=== PATIENT | female | born 1960 | race Caucasian/White ===

== ENCOUNTER 2021-12-26 15:42 | Inpatient (IN) ==
[2021-12-26] MEDS ORDERED: IOPAMIDOL 100 ML BOTTLE IV ONE (15:43)
--- NOTE | 2021-12-26 15:53 | Emergency Department Note ---
HPI General Chief complaint: Cold/Flu Symptoms Stated complaint: Low sats, cough Time Seen by Provider: 12/26/21 15:53 Source: patient Mode of arrival: ambulatory Limitations: no limitations History of Present Illness HPI Narrative: 60-year-old female with past medical history of hypertension presenting with shortness of breath and cough. She states since yesterday she has been short of breath, worse with exertion, and had a cough productive of clear sputum. She went to [facility] and was noted to be satting to 88% on room air so sent to the ED. Patient denies fever, chest pain, vomiting, or leg swelling. She is a prior smoker for about 20 years but quit smoking 2-1/2 years ago. She denies any history of asthma or COPD. Does not wear oxygen at home. Denies any sick contacts. She has received the COVID-vaccine, booster, and the flu vaccine. No other complaints. Related Data Home Medications Medication Instructions Recorded Confirmed losartan 50 mg tablet 50 mg PO DAILY 05/06/20 05/06/20 Previous Rx's Medication Instructions Recorded tramadol 50 mg tablet 50 mg PO Q6H PRN #14 tab 05/06/20 Allergies Allergy/AdvReac Type Severity Reaction Status Date / Time Erythromycin Base Allergy Verified 12/26/21 15:42 Review of Systems ROS ROS Narrative: Narrative: Constitutional: Denies fever or chills ENT ED: Denies throat pain Cardiovascular: Denies chest pain or palpitations Respiratory: Reports shortness of breath and cough Gastrointestinal: Denies abdominal pain, nausea or vomiting Genitourinary: Denies dysuria or hematuria Musculoskeletal: Denies back pain or joint swelling Integumentary: Denies rash Neurological: Denies headache or weakness Psychiatric: Denies anxiety Endocrine: Denies fatigue Hematological/Lymphatic: Denies easy bruising [facility] Narrative Patient History Narrative: Narrative: Medical/Surgical/Family History All Active Problems (Updated 12/26/21 @ 17:04 by Yang Baxter MD) Acute ischemic colitis (Acute) Renal artery stenosis (Acute) Dyspnea (Acute) Hypoxia (Acute) Pneumonia (Acute) Medical History (Updated 12/26/21 @ 17:04 by Yang Baxter MD) Hypertension Social History Smoking Status: Current every day smoker Exam Narrative Narrative: Narrative: General Limitations: no limitations General appearance: Present alert and in no apparent distress Head Head: Present atraumatic and normocephalic Eye Eye: Present normal appearance, PERRL and EOMI; Absent scleral icterus or conjunctival injection ENT ENT: Present normal oropharynx and mucous membranes moist Neck Neck: Present normal inspection, full ROM and trachea midline; Absent meningismus Chest Chest: Present symmetric chest wall rise Respiratory Respiratory: Present wheezes (expiratory wheezes bilaterally); Absent respiratory distress, rales/crackles, stridor, accessory muscle use or prolonged expiratory phase Cardiovascular Cardiovascular: Present normal rhythm and tachycardia; Absent systolic murmur or diastolic murmur Adbominal Abdominal: Present soft; Absent distention, tenderness, guarding, rebound, rigidity, organomegaly or mass Extremities Extremities: Present normal inspection; Absent pretibial edema Back Back: Present normal inspection Neurological Neurological: Present alert and oriented X3; Absent motor sensory deficit Psychiatric Psychiatric: Present normal affect and normal mood Skin Skin: Present warm (WNL) and dry Course Vital Signs Vital signs: Vital Signs Temperature 98.4 F 12/26/21 15:42 Pulse Rate 113 H 12/26/21 15:42 Respiratory Rate 20 12/26/21 15:42 Blood Pressure 156/70 12/26/21 15:42 Pulse Oximetry (%) 90 12/26/21 15:42 Temperature 98.4 F 12/26/21 15:42 Pulse Rate 121 H 12/26/21 16:45 Respiratory Rate 26 H 12/26/21 16:45 Blood Pressure 149/61 12/26/21 16:45 Pulse Oximetry (%) 90 12/26/21 16:45 [facility] Narrative Medical decision making narrative: 60-year-old female presenting with dyspnea and cough. She is hypoxic to 88% on room air, now satting 94 to 96% on 3 L via nasal cannula. She is also tachycardic to the 110s. Normal saline bolus ordered. EKG shows sinus tachycardia with no ischemic changes. Rapid COVID and influenza swabs are negative. Given her wheezing on exam, a DuoNeb was ordered. Will obtain labs including D-dimer, blood cultures, and chest x-ray. Concern for pneumonia versus COPD/bronchitis versus PE. 1650: pH and PCO2 on venous blood gas are normal. Lactate is mildly elevated at 2.1, she is receiving a normal saline bolus. Blood cultures sent and 1g IV Rocephin ordered given her mildly elevated lactate and tachycardia. Poin t-of-care troponin is negative. Chest x-ray and remainder of labs are pending. 1655: Chest x-ray shows bilateral interstitial disease, worse on the right, that is concerning for infection. Doxycycline 100mg IV ordered as well. 0: Patient signed out to denise ROGEL, Dr. Landrum. Lab Data Lab results reviewed: Yes I reviewed the patient's lab results. Result diagrams: 12/26/21 16:05 Labs: Lab Results 12/26/21 12/26/21 12/26/21 Range/Units 16:05 16:07 16:19 WBC 14.4 H (4.5-11.0) K/mcL RBC 3.89 (3.59-5.38) M/mcL Hgb 13.9 (11.2-15.7) g/dL Hct 40.7 (34.1-44.9) % POC Hct 44.0 (36-48) MCV 104.6 H (80.0-100.0) fL MCH 35.7 H (26.0-34.0) pg MCHC 34.2 (31.0-36.0) g/dL RDW 13.2 (11.5-14.5) % Plt Count 176 (140-440) K/mcL MPV 11.2 H (7.4-10.4) fL Neut % (Auto) 91.9 H (38.0-78.0) % Lymph % (Auto) 2.6 L (15.5-49.0) % [place] % (Auto) 5.1 (1.0-12.0) % Eos % (Auto) 0 (0.0-7.0) % Baso % (Auto) 0.4 (0.0-2.0) % Lymph # (Auto) 0.37 L (1.50-4.80) K/mcL [place] # (Auto) 0.73 (0.10-0.90) K/mcL Eos # (Auto) 0 (0.00-0.70) K/mcL Baso # (Auto) 0.06 (0.00-0.30) K/mcL Absolute Neutrophils 13.19 H (1.80-8.00) K/mcL POC VBG pH 7.42 (7.32-7.42) POC VBG pCO2 at Temp 39.5 L (41-51) POC VBG pO2 23 L (25-40) POC VBG HCO3 25.7 (24-28) POC VBG Total CO2 27.0 (25-29) POC Venous O2 Sat 43.0 (40-70) POC VBG Base Excess 1.0 (-2-2) POC Sodium 136 (133-145) POC Potassium 3.9 (3.3-5.1) POC Chloride 101 (96-108) POC Total CO2 23.0 (22-30) POC BUN 11 (6-20) POC Creatinine 0.8 (0.6-1.2) POC Glucose 118 H (70-105) POC Venous Lactate 2.1 H (0.5-2) POC WB Ioniz Calcium 1.12 L (1.16-1.32) POC Troponin I (0.02-0.08) 12/26/21 Range/Units 16:21 WBC (4.5-11.0) K/mcL RBC (3.59-5.38) M/mcL Hgb (11.2-15.7) g/dL Hct (34.1-44.9) % POC Hct (36-48) MCV (80.0-100.0) fL MCH (26.0-34.0) pg MCHC (31.0-36.0) g/dL RDW (11.5-14.5) % Plt Count (140-440) K/mcL MPV (7.4-10.4) fL Neut % (Auto) (38.0-78.0) % Lymph % (Auto) (15.5-49.0) % [place] % (Auto) (1.0-12.0) % Eos % (Auto) (0.0-7.0) % Baso % (Auto) (0.0-2.0) % Lymph # (Auto) (1.50-4.80) K/mcL [place] # (Auto) (0.10-0.90) K/mcL Eos # (Auto) (0.00-0.70) K/mcL Baso # (Auto) (0.00-0.30) K/mcL Absolute Neutrophils (1.80-8.00) K/mcL POC VBG pH (7.32-7.42) POC VBG pCO2 at Temp (41-51) POC VBG pO2 (25-40) POC VBG HCO3 (24-28) POC VBG Total CO2 (25-29) POC Venous O2 Sat (40-70) POC VBG Base Excess (-2-2) POC Sodium (133-145) POC Potassium (3.3-5.1) POC Chloride (96-108) POC Total CO2 (22-30) POC BUN (6-20) POC Creatinine (0.6-1.2) POC Glucose (70-105) POC Venous Lactate (0.5-2) POC WB Ioniz Calcium (1.16-1.32) POC Troponin I 0 L (0.02-0.08) ED POC Tests ED POC Tests: NAILA - Influenza A Negative NAILA - Influenza B Negative NAILA - SARS Antigen Negative Radiology Data Radiology results reviewed: Yes I reviewed the patient's radiology results. Radiology results narrative: Ordering Physician:Yang Baxter M.D. Date of Service:12/26/21 Procedure(s):XR chest 1V portable CLINICAL INFORMATION: Hypoxia and cough COMPARISON: None. TECHNIQUE: Portable FINDINGS: The heart size, mediastinum and pulmonary vessels are unremarkable. Moderate interstitial disease is seen in both mid and lower lungs as more severe on the right side. There is a 2.5 cm vague nodular density in the lateral right midlung. Underlying chronic bronchitis noted. There are no effusions.. There are no effusions. IMPRESSION: Moderate interstitial disease in both mid and lower lungs more severe on the right side. Suspect infection. 2.5 cm vague nodular density in the right midlung is likely merely more concentrated infiltrate, but will require two-view repeat chest x-ray in 2-3 weeks for reevaluation to exclude nodule Interpreted and Authenticated by: Jose Lyn 12/26/21 EKG Data EKG #1: EKG attestation: Yes I reviewed and interpreted this EKG. and Yes There are no EKG findings of acute coronary syndrome EKG results narrative: Sinus tachycardia at [address] elevation or depression. Interpretation: no acute changes Discharge Plan Patient/Caregiver Discharge Instructions Pt seen by LEATHER CUTTER/PA only: No Clinical Impression: Dyspnea, Hypoxia, Pneumonia Patient Disposition: Still a Patient Follow up with: Nely Medel [Primary Care Provider] - Prescriptions: No Action losartan 50 mg Tablet 50 mg PO DAILY 0RF tramadol 50 mg Tablet 50 mg PO Q6H PRN (Reason: Pain) Qty: 14 0RF
[2021-12-26] MEDS ORDERED: IPRATROPIUM/ALBUTEROL 3 ML AMPUL.NEB NEB ONE (16:04)
[2021-12-26] MEDS ORDERED: 0.9 % SODIUM CHLORIDE 1,000 ML IV ONE ×2 (16:06→21:49)
[2021-12-26 16:21] LABS: POC Calcium, Ionized 1.12 (1.16-1.32); POC Creatinine 0.8 (0.6-1.2); POC Potassium 3.9 (3.3-5.1)
[2021-12-26] MEDS ORDERED: cefTRIAXone 1 GM VIAL IV ONE (16:42)
--- NOTE | 2021-12-26 16:50 | XRay Report ---
CLINICAL INFORMATION: Hypoxia and cough COMPARISON: None. TECHNIQUE: Portable FINDINGS: The heart size, mediastinum and pulmonary vessels are unremarkable. Moderate interstitial disease is seen in both mid and lower lungs as more severe on the right side. There is a 2.5 cm vague nodular density in the lateral right midlung. Underlying chronic bronchitis noted. There are no effusions.. There are no effusions. IMPRESSION: Moderate interstitial disease in both mid and lower lungs more severe on the right side. Suspect infection. 2.5 cm vague nodular density in the right midlung is likely merely more concentrated infiltrate, but will require two-view repeat chest x-ray in 2-3 weeks for reevaluation to exclude nodule Interpreted and Authenticated by: Jose Lyn 12/26/21
[2021-12-26 16:58] LABS: Basophils # (Auto) 0.06 K/mcL (0.00-0.30); Basophils % (Auto) 0.4 % (0.0-2.0); Eosinophils # (Auto) 0 K/mcL (0.00-0.70); Eosinophils % (Auto) 0 % (0.0-7.0); Hematocrit 40.7 % (34.1-44.9); Hemoglobin 13.9 g/dL (11.2-15.7); Lymphocytes # (Auto) 0.37 K/mcL (1.50-4.80); Lymphocytes % (Auto) 2.6 % (15.5-49.0); Mean Cell Volume 104.6 fL (80.0-100.0); Mean Corpuscular HGB Conc 34.2 g/dL (31.0-36.0); Mean Platelet Volume 11.2 fL (7.4-10.4); Monocytes # (Auto) 0.73 K/mcL (0.10-0.90); Monocytes % (Auto) 5.1 % (1.0-12.0); Neutrophils % (Auto) 91.9 % (38.0-78.0); Platelet Count 176 K/mcL (140-440); RBC 3.89 M/mcL (3.59-5.38); Red Cell Distribution Width 13.2 % (11.5-14.5); WBC 14.4 K/mcL (4.5-11.0)
[2021-12-26] MEDS ORDERED: DOXYCYCLINE 100 MG in DEXTROSE 5% IN WATER 100 ML IV ONE (16:58)
[2021-12-26 17:14] LABS: proBNP 377.5 pg/mL (<125.0)
--- NOTE | 2021-12-26 18:09 | Cat Scan Report ---
CLINICAL INFORMATION: Hypoxia and elevated d-dimer COMPARISON: None. TECHNIQUE: 80ml of Isovue-370 were injected intravenously. Using SmartPrep to maximize pulmonary artery opacification, .625mm helical slices were obtained from the lung apices through the lung bases. Following reconstruction, 2.5 mm sagittal, coronal, and axial reformations were processed. The exam was reviewed at mediastinal, lung, and bone windows. The exam was performed using radiation dose optimization techniques including, but not limited to, automated exposure control, adjustment of the mA and/or kV according to patient size and use of iterative reconstruction technique. FINDINGS: Pulmonary parenchymal windows show moderate centrilobular and paraseptal emphysema featuring chronic bronchitis with elevated lung volumes wall thickening/dilatation of bronchi. Multiple bullae are, predominantly, in the upper lobes with a few scattered in the paramediastinal lower lobe and right middle lobe. Moderate groundglass infiltrates are seen within both upper, right middle and lower lobes. In the posterior segment of the right upper lobe, a smaller more densely consolidated infiltrate is appreciated. This would account for the density seen on plain x-ray. 2 mm nodule seen in the lateral right upper lobe on image 38. This is benign size range and could represent a granuloma. Pleural spaces are unremarkable-no effusions. Mediastinal windows show the heart is grossly normal in size and configuration. The pulmonary arteries are normal diameter and well-opacified without evidence of embolus. Thoracic aorta is also normal diameter and well-opacified. There is no adenopathy in the mediastinal, hilar or axillary regions. Esophagus is grossly normal. The thyroid is unremarkable. Bones and soft tissues the chest wall are normal. Images through the superior abdomen are unremarkable. IMPRESSION: 1. No evidence of pulmonary embolus. 2. Moderate centrilobular and paraseptal emphysema 3. Moderate groundglass infiltrates throughout both upper, right middle and lower lobes. A smaller region of densely consolidated infiltrate seen in the posterior segment of the right upper lobe. This would account for the focal density seen on plain x-ray. No evidence of pulmonary malignancy. In the acute situation, the groundglass infiltrates may represent atypical pneumonia such as PCP, mycoplasma or covid and other viral pneumonias. ARDS would be less likely. Uncommon causes would include acute eosinophilic pneumonia and acute hypersensitivity pneumonitis. Interpreted and Authenticated by: Jose Lyn 12/26/21
--- NOTE | 2021-12-26 19:20 | Internal Med History&Physical ---
HPI History of Present Illness Patient information: Note initiated : 12/26/21 at 7:19 pm Service Date, if different from initiated Date: [] Patient: Renate Dykes a 60 y/o F admitted on for Low sats, cough. Chief Complaint: [] History of present illness: Ms. Dykes is a 60 year old Presents today with shortness of breath and coughing. Patient states yesterday she started developing a cough and some mild shortness of breath which progressed through the night and today where she was so severe she could hardly walk across the room as she became so short of breath. She had productive cough of clear and sometimes thick sputum. Also had a few loose stools. No chest pain no headache or fever but has chills. She has had the COVID-vaccine and the booster. Rapid [place] COVID and flu screens were negative. The [place] COVID test is been sent Patient has a history of heavy smoking 3 years ago. An elevated D-dimer and CT was done which showed no PE but did show moderate emphysema changes and bilateral infiltrates. Patient's never been evaluated for COPD she did receive an inhaler 1 time for upper respite tract infection she felt she responded well to it. She is hypoxic down to 83% in the ED. Review of Systems: Pertinent positives as above. Denies headache/fever/nausea/vomiting/chest or abdominal pain. Remaining 10 point review of system reviewed negative PFSH PFSH All Active Problems (Updated 12/26/21 @ 17:04 by Yang Baxter MD) Acute ischemic colitis (Acute) Renal artery stenosis (Acute) Dyspnea (Acute) Hypoxia (Acute) Pneumonia (Acute) Medical History (Updated 12/26/21 @ 17:04 by Yang Baxter MD) Hypertension MEDS/ALLERGIES Home Medications and Allergies Home Medications Medication Instructions Recorded Confirmed Type losartan 50 mg tablet 50 mg PO DAILY 05/06/20 12/26/21 History alendronate 70 mg tablet 1 tab PO WEEKLY 12/26/21 12/26/21 History aspirin 81 mg tablet 81 mg PO QDAY 12/26/21 12/26/21 History clopidogrel 75 mg tablet 1 tab PO QAM 12/26/21 12/26/21 History fenofibrate nanocrystallized 145 1 tab PO QDAY 12/26/21 12/26/21 History mg tablet folic acid 400 mcg tablet 0.4 mg PO QDAY 12/26/21 12/26/21 History Allergies Allergy/AdvReac Type Severity Reaction Status Date / Time Erythromycin Base Allergy Verified 12/26/21 15:42 EXAM Constitutional Vitals: Temp Pulse Resp BP Pulse Ox 98.4 F 103 H 25 H 125/68 94 12/26/21 15:42 12/26/21 18:46 12/26/21 18:46 12/26/21 18:46 12/26/21 18:46 Exam: General: Alert, Awake, cachectic Eyes/N/T: EOMI, PERRL, MM Head/Neck: neck supple, normocephalic atraumatic CV: Tacky but regular, No murmurs, normal s1/s2 Pulm: Subtle rhonchi b/l, no wheezing, prolonged exp phase Abd: soft, nontender, +BS x4 Ext: no clubbing/cyanosis/edema Neuro: Alert, no focal deficits, moves all extremities, CN 2-12 grossly intact, symmetrical strength b/l upper/lower, sensations intact b/l upper/lower Skin: warm/dry DATA Data Completed and Pending Labs: Labs from last 24 hours 12/26/21 12/26/21 12/26/21 19:04 16:21 16:19 WBC RBC Hgb Hct POC Hct 44.0 MCV MCH MCHC RDW Plt Count MPV Neut % (Auto) Lymph % (Auto) [place] % (Auto) Eos % (Auto) Baso % (Auto) Lymph # (Auto) [place] # (Auto) Eos # (Auto) Baso # (Auto) Absolute Neutrophils D-Dimer POC VBG pH POC VBG pCO2 at Temp POC VBG pO2 POC VBG HCO3 POC VBG Total CO2 POC Venous O2 Sat POC VBG Base Excess VBG Lactic Acid Pending POC Sodium 136 POC Potassium 3.9 POC Chloride 101 POC Total CO2 23.0 POC BUN 11 POC Creatinine 0.8 POC Glucose 118 H POC Venous Lactate POC WB Ioniz Calcium 1.12 L NT-Pro-B Natriuret Pep Procalcitonin POC Troponin I 0 L 12/26/21 12/26/21 12/26/21 16:07 16:05 16:05 WBC RBC Hgb Hct POC Hct MCV MCH MCHC RDW Plt Count MPV Neut % (Auto) Lymph % (Auto) [place] % (Auto) Eos % (Auto) Baso % (Auto) Lymph # (Auto) [place] # (Auto) Eos # (Auto) Baso # (Auto) Absolute Neutrophils D-Dimer POC VBG pH 7.42 POC VBG pCO2 at Temp 39.5 L POC VBG pO2 23 L POC VBG HCO3 25.7 POC VBG Total CO2 27.0 POC Venous O2 Sat 43.0 POC VBG Base Excess 1.0 VBG Lactic Acid POC Sodium POC Potassium POC Chloride POC Total CO2 POC BUN POC Creatinine POC Glucose POC Venous Lactate 2.1 H POC WB Ioniz Calcium NT-Pro-B Natriuret Pep 377.5 H Procalcitonin 1.29 H POC Troponin I 12/26/21 12/26/21 16:05 16:05 WBC 14.4 H RBC 3.89 Hgb 13.9 Hct 40.7 POC Hct MCV 104.6 H MCH 35.7 H MCHC 34.2 RDW 13.2 Plt Count 176 MPV 11.2 H Neut % (Auto) 91.9 H Lymph % (Auto) 2.6 L [place] % (Auto) 5.1 Eos % (Auto) 0 Baso % (Auto) 0.4 Lymph # (Auto) 0.37 L [place] # (Auto) 0.73 Eos # (Auto) 0 Baso # (Auto) 0.06 Absolute Neutrophils 13.19 H D-Dimer 2.22 H POC VBG pH POC VBG pCO2 at Temp POC VBG pO2 POC VBG HCO3 POC VBG Total CO2 POC Venous O2 Sat POC VBG Base Excess VBG Lactic Acid POC Sodium POC Potassium POC Chloride POC Total CO2 POC BUN POC Creatinine POC Glucose POC Venous Lactate POC WB Ioniz Calcium NT-Pro-B Natriuret Pep Procalcitonin POC Troponin I A/P Narrative A/P Narrative: A: *Pneumonia, CAP b/l: -elevated PCT *Acute hypoxic respiratory failure: *SIRS: *Protein calorie malnutrition: Fat and muscle loss *COPD: By imaging and smoking history *HTN: on ARB *CKD III: *PAD: Stent to the right groin by Dr. Fournier few years ago, on ASA/plavix/fibrate *Macrocytosis: * P: -Rocephin/Azithro, f/u pct, SC/BC -Covid/myco/strep pending -O2 supp, wean as able -IS/Acapella, RT, prn nebs - -b12/folate pending -prealbumin, dietary -cont ASA/plavix -cont ARB -pt/ot -Follow-up with pulmonary for PFTs -ppx: Lovenox Time Spent With Patient Time: Total time spent is greater than 50% in coordination of care (as documented) at patient's floor/unit and/or counseling patient: Total time spent with greater than 50% in coordination of care (as documented) at patient's floor/unit and/or counseling patient:: 50 - 70 minutes
[2021-12-26] MEDS ORDERED: MAGNESIUM SULFATE 2 GM/50 ML BAG IV PRN (21:49)
[2021-12-26] MEDS ORDERED: ONDANSETRON 4 MG/2 ML VIAL IV PRN (21:49)
[2021-12-26] MEDS ORDERED: POTASSIUM CHLORIDE 40 MEQ in DEXTROSE 5% IN WATER 500 ML IV PRN (21:49)
[2021-12-26] MEDS ORDERED: POTASSIUM CHLORIDE 20 MEQ TABLET PO PRN ×2 (21:49)
[2021-12-26] MEDS ORDERED: IPRATROPIUM/ALBUTEROL 3 ML AMPUL.NEB NEB PRN (21:49)
[2021-12-26] MEDS ORDERED: POLYETHYLENE GLYCOL 3350 17 GM PACKET PO PRN (21:49)
[2021-12-26] MEDS ORDERED: SENNOSIDES 1 TABLET PO PRN (21:49)
[2021-12-26] MEDS: 0.9 % SODIUM CHLORIDE 10 ML SYRINGE IV SCH (22:23)
[2021-12-26] MEDS: AZITHROMYCIN 500 MG in DEXTROSE 5% IN WATER 250 ML IV SCH (22:26)
[2021-12-26] MEDS: IPRATROPIUM/ALBUTEROL 3 ML AMPUL.NEB NEB SCH (22:29)
[2021-12-27] MEDS: ACETAMINOPHEN 325 MG TABLET PO PRN ×3 (00:16→22:18)
[2021-12-27 02:31] LABS: Prealbumin 18.9 mg/dL (20.0-40.0)
[2021-12-27] MEDS: 0.9 % SODIUM CHLORIDE 10 ML SYRINGE IV SCH ×3 (06:54→21:13)
[2021-12-27 06:58] LABS: ALT/SGPT 6 U/L (<40); AST/SGOT 29 U/L (<32); Albumin 3.2 gm/dL (3.2-5.2); Albumin/Globulin Ratio 1.3 (1.0-2.3); Alkaline Phosphatase 42 U/L (39-117); Bilirubin,Direct < 0.2 mg/dL (0-0.3); Bilirubin,Total 0.4 mg/dL (0.1-1.0); Blood Urea Nitrogen 8 mg/dL (8-23); Calcium 8.3 mg/dL (8.6-10.4); Carbon Dioxide 22 mmol/L (22-30); Chloride 106 mmol/L (96-108); Globulin 2.5 gm/dL (2.2-3.7); Glomerular Filtration Rate 78; Glucose 105 mg/dL (70-105); Lactate Dehydrogenase 321 U/L (135-225); Phosphorous 2.5 mg/dL (2.5-4.5); Triglycerides 82 mg/dL (<150)
[2021-12-27 07:02] LABS: Basophils # (Auto) 0.05 K/mcL (0.00-0.30); Basophils % (Auto) 0.4 % (0.0-2.0); Eosinophils # (Auto) 0.03 K/mcL (0.00-0.70); Eosinophils % (Auto) 0.2 % (0.0-7.0); Hematocrit 34.3 % (34.1-44.9); Hemoglobin 11.3 g/dL (11.2-15.7); Lymphocytes # (Auto) 1.16 K/mcL (1.50-4.80); Lymphocytes % (Auto) 8.3 % (15.5-49.0); Mean Cell Volume 106.2 fL (80.0-100.0); Mean Corpuscular HGB Conc 32.9 g/dL (31.0-36.0); Mean Platelet Volume 11.2 fL (7.4-10.4); Monocytes # (Auto) 0.45 K/mcL (0.10-0.90); Monocytes % (Auto) 3.2 % (1.0-12.0); Neutrophils % (Auto) 87.9 % (38.0-78.0); Platelet Count 136 K/mcL (140-440); RBC 3.23 M/mcL (3.59-5.38); Red Cell Distribution Width 13.2 % (11.5-14.5); WBC 13.9 K/mcL (4.5-11.0)
--- NOTE | 2021-12-27 08:08 | Internal Med Progress Note ---
SUBJECTIVE Subjective Patient information: Note initiated : 12/27/21 at 8:00 am Service Date, if different from initiated Date: [] Patient: Renate Dykes 60 y/o F admitted on 12/26/21 for Low sats, cough. Chief Complaint: [] Interval history: History of present illness: Ms. Dykes is a 60 year old Presents today with shortness of breath and coughing. Patient states yesterday she started developing a cough and some mild shortness of breath which progressed through the night and today where she was so severe she could hardly walk across the room as she became so short of breath. She had productive cough of clear and sometimes thick sputum. Also had a few loose stools. No chest pain no headache or fever but has chills. She has had the COVID-vaccine and the booster. Rapid [facility]odee COVID and flu screens were negative. The [place] COVID test is been sent Patient has a history of heavy smoking 3 years ago. An elevated D-dimer and CT was done which showed no PE but did show moderate emphysema changes and bilateral infiltrates. Patient's never been evaluated for COPD she did receive an inhaler 1 time for upper respite tract infection she felt she responded well to it. She is hypoxic down to 83% in the ED. 5/4 Continues with cough and shortness of breath with some mild improvement. Tired. Sore chest wall from coughing. Leukocytosis. Lactic acidosis resolved. Mycoplasma IgM positive sending a confirmatory test. Review of Systems: denies headache/fever/chills/nausea/vomiting/chest or abdominal pain/diarrhea. Otherwise see above. Constitutional Vitals: Vital Signs Temp Pulse Resp BP Pulse Ox 98.4 F 102 H 20 130/62 95 12/27/21 00:00 12/26/21 22:10 12/27/21 00:00 12/27/21 00:00 12/27/21 00:00 Period Temp Pulse Resp BP Sys/Wick Pulse Ox Last 24 Hr 98.4 F-98.4 F 94-125 16-32 108-156/54-113 83-98 Intake and Output 12/26/21 12/27/21 12/27/21 21:59 05:59 13:59 Intake Total 1100 400 Output Total 200 Balance 1100 200 Weight 45.994 kg 45.994 kg Intake & Output: Intake & Output 12/26/21 12/27/21 12/27/21 21:59 05:59 13:59 Intake Total 1100 400 Output Total 200 Balance 1100 200 Weight 45.994 kg 45.994 kg Intake: IV 1100 Sodium Chloride 0.9% 1,000 ml @ 1000 Wide Open IV BOLUS ONE Rx#: [id number] Vibramycin 100 mg In Dextrose 5 100 % in Water 100 ml @ 100 mls/hr IV ONCE ONE Rx#:[id number] Oral 400 Output: Void Amount 200 Other: Urine Appearance Clear Urine Color Pale # Voids 1 # Bowel Movements 0 Exam: General: Alert, Awake, cachectic Eyes/N/T: EOMI, Head/Neck: neck supple, CV: RRR, No murmurs, Pulm: mil rhonchi b/l, no wheezing, prolonged exp phase Abd: soft, nontender, +BS x4 Ext: no clubbing/cyanosis/edema Neuro: Alert, no focal deficits, moves all extremities, Skin: warm/dry OBJ DATA Labs CBC & Chem 7: 12/27/21 05:53 12/27/21 05:53 Labs: Abnormal Lab Results 12/27/21 12/27/21 12/27/21 05:53 05:53 05:53 WBC 13.9 H RBC 3.23 L MCV 106.2 H MCH 35.0 H Plt Count 136 L MPV 11.2 H Neut % (Auto) 87.9 H Lymph % (Auto) 8.3 L Lymph # (Auto) 1.16 L Absolute Neutrophils 12.25 H D-Dimer POC VBG pCO2 at Temp POC VBG pO2 VBG Lactic Acid POC Glucose POC Venous Lactate Calcium 8.3 L POC WB Ioniz Calcium Lactate Dehydrogenase 321 H NT-Pro-B Natriuret Pep Total Protein 5.7 L Prealbumin Procalcitonin 3.13 H Mycoplasma pneumon IgM POC Troponin I 12/26/21 12/26/21 12/26/21 22:26 22:25 19:04 WBC RBC MCV MCH Plt Count MPV Neut % (Auto) Lymph % (Auto) Lymph # (Auto) Absolute Neutrophils D-Dimer POC VBG pCO2 at Temp POC VBG pO2 VBG Lactic Acid 2.9 H POC Glucose POC Venous Lactate Calcium POC WB Ioniz Calcium Lactate Dehydrogenase NT-Pro-B Natriuret Pep Total Protein Prealbumin 18.9 L Procalcitonin Mycoplasma pneumon IgM Positive A POC Troponin I 12/26/21 12/26/21 12/26/21 16:21 16:19 16:07 WBC RBC MCV MCH Plt Count MPV Neut % (Auto) Lymph % (Auto) Lymph # (Auto) Absolute Neutrophils D-Dimer POC VBG pCO2 at Temp 39.5 L POC VBG pO2 23 L VBG Lactic Acid POC Glucose 118 H POC Venous Lactate 2.1 H Calcium POC WB Ioniz Calcium 1.12 L Lactate Dehydrogenase NT-Pro-B Natriuret Pep Total Protein Prealbumin Procalcitonin Mycoplasma pneumon IgM POC Troponin I 0 L 12/26/21 12/26/21 12/26/21 16:05 16:05 16:05 WBC RBC MCV MCH Plt Count MPV Neut % (Auto) Lymph % (Auto) Lymph # (Auto) Absolute Neutrophils D-Dimer 2.22 H POC VBG pCO2 at Temp POC VBG pO2 VBG Lactic Acid POC Glucose POC Venous Lactate Calcium POC WB Ioniz Calcium Lactate Dehydrogenase NT-Pro-B Natriuret Pep 377.5 H Total Protein Prealbumin Procalcitonin 1.29 H Mycoplasma pneumon IgM POC Troponin I 12/26/21 16:05 WBC 14.4 H RBC MCV 104.6 H MCH 35.7 H Plt Count MPV 11.2 H Neut % (Auto) 91.9 H Lymph % (Auto) 2.6 L Lymph # (Auto) 0.37 L Absolute Neutrophils 13.19 H D-Dimer POC VBG pCO2 at Temp POC VBG pO2 VBG Lactic Acid POC Glucose POC Venous Lactate Calcium POC WB Ioniz Calcium Lactate Dehydrogenase NT-Pro-B Natriuret Pep Total Protein Prealbumin Procalcitonin Mycoplasma pneumon IgM POC Troponin I Meds: Medications Acetaminophen (Acetaminophen 325 Mg Tablet) 650 mg PO Q6HP PRN; Protocol PRN Reason: Per Pain Protocol/Fever > 101 Last Admin: 12/27/21 00:16 Dose: 650 mg Documented by: Albuterol/Ipratropium (Ipratropium/Albuterol 3 Ml Ampul.Neb) 3 ml NEB Q4HP PRN PRN Reason: Shortness Of Breath Albuterol/Ipratropium (Ipratropium/Albuterol 3 Ml Ampul.Neb) 3 ml NEB BID GUERRERO Last Admin: 12/26/21 22:29 Dose: 3 ml Documented by: Aspirin (Aspirin 81 Mg Tab.Chew) 81 mg PO QDAY [facility] Clopidogrel Bisulfate (Clopidogrel 75 Mg Tablet) 75 mg PO QAM [facility] Enoxaparin Sodium (Enoxaparin 30 Mg/0.3 Ml Syringe) 30 mg SQ DAILY [facility] Fenofibrate (Fenofibrate 43 Mg Capsule) 129 mg PO QDAY [facility] Folic Acid (Folic Acid 1 Mg Tablet) 0.5 mg PO QDAY [facility] Potassium Chloride 40 meq/ (Dextrose) 520 mls @ 130 mls/hr IV UD PRN PRN Reason: Potassium < 3 Magnesium Sulfate (Magnesium Sulfate) 2 gm in 50 mls @ 50 mls/hr IV UD PRN PRN Reason: Magnesium </= 1.6 Ceftriaxone Sodium 2 gm/ (Dextrose) 50 mls @ 100 mls/hr IV Q24H [facility]; Protocol Azithromycin 500 mg/ Dextrose 250 mls @ 250 mls/hr IV Q24H [facility]; Protocol Stop: 12/28/21 21:59 Last Admin: 12/26/21 22:26 Dose: 250 mls/hr Documented by: Losartan Potassium (Losartan 50 Mg Tablet) 50 mg PO DAILY [facility] Ondansetron HCl (Ondansetron 4 Mg/2 Ml Vial) 4 mg IV Q4HP PRN PRN Reason: Nausea And Vomiting Polyethylene Glycol (Polyethylene Glycol 3350 17 Gm Packet) 17 gm PO DAILYP PRN PRN Reason: Constipation Potassium Chloride (Potassium Chloride 20 Meq Tablet) 40 meq PO UD PRN PRN Reason: Potssium is 3-3.5 Potassium Chloride (Potassium Chloride 20 Meq Tablet) 40 meq PO UD PRN PRN Reason: Potassium < 3 Senna (Sennosides 1 Tablet) 2 tab PO DAILYP PRN PRN Reason: Constipation Sodium Chloride (0.9 % Sodium Chloride 10 Ml Syringe) 10 ml IV Q8 [facility] Last Admin: 12/27/21 06:54 Dose: Not Given Documented by: A/P Narrative A/P Narrative: A: *Pneumonia, CAP b/l: likely Mycoplasman PNA given serology and interstitial pulm findings -elevated PCT -Myco IgM (+) *Acute hypoxic respiratory failure: -on 2L NC *Sepsis w/lactic acidosis: -leukocytosis *Thrombocytopenia, mild 2/2 above *Protein calorie malnutrition: Fat and muscle loss *COPD: By imaging and smoking history *HTN: on ARB *CKD III: *PAD: Stent to the right groin by Dr. Fournier few years ago, on ASA/plavix/fibrate *Macrocytosis: b12/folate wnl * P: -Rocephin/Azithro, f/u pct, SC/BC -Myco confirmatory test pending -Covid pending -O2 supp, wean as able -IS/Acapella, RT, prn nebs -d/c IVF, f/u lactate -b12/folate pending -prealbumin, dietary -cont ASA/plavix -cont ARB -pt/ot -Follow-up with pulmonary for PFTs -ppx: Lovenox Time Spent With Patient Time: Total time spent is greater than 50% in coordination of care (as documented) at patient's floor/unit and/or counseling patient: Total time spent with greater than 50% in coordination of care (as documented) at patient's floor/unit and/or counseling patient:: 35 - 50 minutes QUALITY Stroke Symptom Onset Unknown: No VTE Deep Vein Thrombosis/Pulmonary Embolism Present on Admission: No
[2021-12-27] MEDS: IPRATROPIUM/ALBUTEROL 3 ML AMPUL.NEB NEB SCH ×2 (08:16→19:20)
[2021-12-27] MEDS ORDERED: BENZONATATE 100 MG CAPSULE PO ONE (09:09)
[2021-12-27] MEDS: ASPIRIN 81 MG TAB.CHEW PO SCH (10:43)
[2021-12-27] MEDS: FENOFIBRATE 43 MG CAPSULE PO SCH (10:43)
[2021-12-27] MEDS: ENOXAPARIN 30 MG/0.3 ML SYRINGE SQ SCH (10:44)
[2021-12-27] MEDS: LOSARTAN 50 MG TABLET PO SCH (10:44)
[2021-12-27] MEDS: CLOPIDOGREL 75 MG TABLET PO SCH (10:44)
[2021-12-27] MEDS: cefTRIAXone 2 GM in DEXTROSE 5% IN WATER 50 ML IV SCH (10:44)
[2021-12-27] MEDS: FOLIC ACID 1 MG TABLET PO SCH (10:44)
--- NOTE | 2021-12-27 12:07 | Internal Med Progress Note ---
SUBJECTIVE Subjective Patient information: Note initiated : 12/27/21 at 12:04 pm Service Date, if different from initiated Date: [] Patient: Renate Dykes 60 y/o F admitted on 12/26/21 for Low sats, cough. Chief Complaint: [] Interval history: History of present illness: Ms. Dykes is a 60 year old Presents today with shortness of breath and coughing. Patient states yesterday she started developing a cough and some mild shortness of breath which progressed through the night and today where she was so severe she could hardly walk across the room as she became so short of breath. She had productive cough of clear and sometimes thick sputum. Also had a few loose stools. No chest pain no headache or fever but has chills. She has had the COVID-vaccine and the booster. Rapid [place] COVID and flu screens were negative. The [place] COVID test is been sent Patient has a history of heavy smoking 3 years ago. An elevated D-dimer and CT was done which showed no PE but did show moderate emphysema changes and bilateral infiltrates. Patient's never been evaluated for COPD she did receive an inhaler 1 time for upper respite tract infection she felt she responded well to it. She is hypoxic down to 83% in the ED. 5/4 Continues with cough and shortness of breath with some mild improvement. Tired. Sore chest wall from coughing. Leukocytosis. Lactic acidosis resolved. Mycoplasma IgM positive sending a confirmatory test. 5/5 Fevers overnight, persistent cough, briefly on room air but then transitioned to 1 L/min nasal canula oxygen. PANTHER NAAT negative. Started oral Levofloxacin, discontinued ceftriaxone and Azithromycin. Physical Exam Head: Atraumatic, normal inspection. Eyes: normal appearance, no scleral icterus. Neck: full ROM Respiratory: bilateral wheezes, no respiratory distress. Cardiovascular: regular tachycardia, S1, S2. GI/Abdominal: soft, nontender, no guarding. Extremities: full range of motion, nontender. Neurological: CN II-XII intact, intact motor, intact sensation. Psychiatric: normal mood. Skin: warm, normal color Constitutional Vitals: Vital Signs Temp Pulse Resp BP Pulse Ox 98.9 F 94 H 20 132/65 93 12/27/21 08:00 12/27/21 08:17 12/27/21 08:17 12/27/21 08:00 12/27/21 11:02 Period Temp Pulse Resp BP Sys/Wick Pulse Ox Last 24 Hr 98.4 F-98.9 F 94-125 16-32 108-156/54-113 83-98 Intake and Output 12/26/21 12/27/21 12/27/21 21:59 05:59 13:59 Intake Total 9629 875 8574 Output Total 200 Balance 0956 753 2373 Weight 45.994 kg 45.994 kg Intake & Output: Intake & Output 12/26/21 12/27/21 12/27/21 21:59 05:59 13:59 Intake Total 9015 737 8568 Output Total 200 Balance 6102 754 3888 Weight 45.994 kg 45.994 kg Intake: IV 4637 886 2791 Sodium Chloride 0.9% 1,000 ml @ 1000 1000 100 mls/hr IV .Q10H ONE Rx#: [id number] Zithromax 500 mg In Dextrose 5% 250 in Water 250 ml @ 250 mls/hr IV Q24H [facility] Rx#:[id number] Vibramycin 100 mg In Dextrose 5 100 % in Water 100 ml @ 100 mls/hr IV ONCE ONE Rx#:[id number] Rocephin 2 gm In Dextrose 5% in 50 Water 50 ml @ 100 mls/hr IV Q24H [facility] Rx#:[id number] Oral 400 Output: Void Amount 200 Other: Urine Appearance Clear Urine Color Pale # Voids 1 # Bowel Movements 0 OBJ DATA Labs CBC & Chem 7: 12/28/21 05:39 12/28/21 05:39 Labs: Abnormal Lab Results 12/27/21 12/27/21 12/27/21 05:53 05:53 05:53 WBC 13.9 H RBC 3.23 L MCV 106.2 H MCH 35.0 H Plt Count 136 L MPV 11.2 H Neut % (Auto) 87.9 H Lymph % (Auto) 8.3 L Lymph # (Auto) 1.16 L Absolute Neutrophils 12.25 H D-Dimer POC VBG pCO2 at Temp POC VBG pO2 VBG Lactic Acid POC Glucose POC Venous Lactate Calcium 8.3 L POC WB Ioniz Calcium Lactate Dehydrogenase 321 H NT-Pro-B Natriuret Pep Total Protein 5.7 L Prealbumin Procalcitonin 3.13 H Mycoplasma pneumon IgM POC Troponin I 12/26/21 12/26/21 12/26/21 22:26 22:25 19:04 WBC RBC MCV MCH Plt Count MPV Neut % (Auto) Lymph % (Auto) Lymph # (Auto) Absolute Neutrophils D-Dimer POC VBG pCO2 at Temp POC VBG pO2 VBG Lactic Acid 2.9 H POC Glucose POC Venous Lactate Calcium POC WB Ioniz Calcium Lactate Dehydrogenase NT-Pro-B Natriuret Pep Total Protein Prealbumin 18.9 L Procalcitonin Mycoplasma pneumon IgM Positive A POC Troponin I 12/26/21 12/26/21 12/26/21 16:21 16:19 16:07 WBC RBC MCV MCH Plt Count MPV Neut % (Auto) Lymph % (Auto) Lymph # (Auto) Absolute Neutrophils D-Dimer POC VBG pCO2 at Temp 39.5 L POC VBG pO2 23 L VBG Lactic Acid POC Glucose 118 H POC Venous Lactate 2.1 H Calcium POC WB Ioniz Calcium 1.12 L Lactate Dehydrogenase NT-Pro-B Natriuret Pep Total Protein Prealbumin Procalcitonin Mycoplasma pneumon IgM POC Troponin I 0 L 12/26/21 12/26/21 12/26/21 16:05 16:05 16:05 WBC RBC MCV MCH Plt Count MPV Neut % (Auto) Lymph % (Auto) Lymph # (Auto) Absolute Neutrophils D-Dimer 2.22 H POC VBG pCO2 at Temp POC VBG pO2 VBG Lactic Acid POC Glucose POC Venous Lactate Calcium POC WB Ioniz Calcium Lactate Dehydrogenase NT-Pro-B Natriuret Pep 377.5 H Total Protein Prealbumin Procalcitonin 1.29 H Mycoplasma pneumon IgM POC Troponin I 12/26/21 16:05 WBC 14.4 H RBC MCV 104.6 H MCH 35.7 H Plt Count MPV 11.2 H Neut % (Auto) 91.9 H Lymph % (Auto) 2.6 L Lymph # (Auto) 0.37 L Absolute Neutrophils 13.19 H D-Dimer POC VBG pCO2 at Temp POC VBG pO2 VBG Lactic Acid POC Glucose POC Venous Lactate Calcium POC WB Ioniz Calcium Lactate Dehydrogenase NT-Pro-B Natriuret Pep Total Protein Prealbumin Procalcitonin Mycoplasma pneumon IgM POC Troponin I Meds: Medications Acetaminophen (Acetaminophen 325 Mg Tablet) 650 mg PO Q6HP PRN; Protocol PRN Reason: Per Pain Protocol/Fever > 101 Last Admin: 05/04/22 00:16 Dose: 650 mg Documented by: Albuterol/Ipratropium (Ipratropium/Albuterol 3 Ml Ampul.Neb) 3 ml NEB Q4HP PRN PRN Reason: Shortness Of Breath Albuterol/Ipratropium (Ipratropium/Albuterol 3 Ml Ampul.Neb) 3 ml NEB BID [facility] Last Admin: 12/27/21 08:16 Dose: 3 ml Documented by: Aspirin (Aspirin 81 Mg Tab.Chew) 81 mg PO QDAY [facility] Last Admin: 12/27/21 10:43 Dose: 81 mg Documented by: Benzonatate (Benzonatate 100 Mg Capsule) 200 mg PO TIDP PRN PRN Reason: Cough Clopidogrel Bisulfate (Clopidogrel 75 Mg Tablet) 75 mg PO QAM [facility] Last Admin: 12/27/21 10:44 Dose: 75 mg Documented by: Enoxaparin Sodium (Enoxaparin 30 Mg/0.3 Ml Syringe) 30 mg SQ DAILY [facility] Last Admin: 12/27/21 10:44 Dose: 30 mg Documented by: Fenofibrate (Fenofibrate 43 Mg Capsule) 129 mg PO QDAY [facility] Last Admin: 12/27/21 10:43 Dose: 129 mg Documented by: Folic Acid (Folic Acid 1 Mg Tablet) 0.5 mg PO QDAY [facility] Last Admin: 12/27/21 10:44 Dose: 0.5 mg Documented by: Guaifenesin/Codeine Phosphate (Guaifenesin/Codeine 10 Ml Udc) 10 ml PO Q4HP PRN PRN Reason: Cough Potassium Chloride 40 meq/ (Dextrose) 520 mls @ 130 mls/hr IV UD PRN PRN Reason: Potassium < 3 Magnesium Sulfate (Magnesium Sulfate) 2 gm in 50 mls @ 50 mls/hr IV UD PRN PRN Reason: Magnesium </= 1.6 Ceftriaxone Sodium 2 gm/ (Dextrose) 50 mls @ 100 mls/hr IV Q24H [facility]; Protocol Last Infusion: 12/27/21 11:25 Dose: Infused Documented by: Azithromycin 500 mg/ Dextrose 250 mls @ 250 mls/hr IV Q24H [facility]; Protocol Stop: 12/28/21 21:59 Last Infusion: 12/26/21 23:26 Dose: Infused Documented by: Losartan Potassium (Losartan 50 Mg Tablet) 50 mg PO DAILY [facility] Last Admin: 12/27/21 10:44 Dose: 50 mg Documented by: Ondansetron HCl (Ondansetron 4 Mg/2 Ml Vial) 4 mg IV Q4HP PRN PRN Reason: Nausea And Vomiting Polyethylene Glycol (Polyethylene Glycol 3350 17 Gm Packet) 17 gm PO DAILYP PRN PRN Reason: Constipation Potassium Chloride (Potassium Chloride 20 Meq Tablet) 40 meq PO UD PRN PRN Reason: Potssium is 3-3.5 Potassium Chloride (Potassium Chloride 20 Meq Tablet) 40 meq PO UD PRN PRN Reason: Potassium < 3 Senna (Sennosides 1 Tablet) 2 tab PO DAILYP PRN PRN Reason: Constipation Sodium Chloride (0.9 % Sodium Chloride 10 Ml Syringe) 10 ml IV Q8 [facility] Last Admin: 12/27/21 06:54 Dose: Not Given Documented by: A/P Narrative A/P Narrative: A: *Pneumonia, CAP b/l: likely Mycoplasman PNA given serology and interstitial pulm findings -elevated PCT -Myco IgM (+) *Acute hypoxic respiratory failure: *Resolving sepsis w/lactic acidosis: *Thrombocytopenia, mild 2/2 above *Protein calorie malnutrition: Fat and muscle loss *COPD: By imaging and smoking history *HTN: on ARB *CKD III: *PAD: Stent to the right groin by Dr. Fournier few years ago, on ASA/plavix/fibrate *Macrocytosis: b12/folate wnl P: -Levoflacin PO, f/u sputum culture. -Myco confirmatory test pending -O2 supp, wean as able -IS/Acapella, RT, prn nebs -cont ASA/plavix -cont ARB -pt/ot -Follow-up with pulmonary for PFTs -ppx: Lovenox Time Spent With Patient Time: Total time spent is greater than 50% in coordination of care (as documented) at patient's floor/unit and/or counseling patient: QUALITY Stroke Symptom Onset Unknown: No VTE Deep Vein Thrombosis/Pulmonary Embolism Present on Admission: No
[2021-12-27] MEDS: AZITHROMYCIN 500 MG in DEXTROSE 5% IN WATER 250 ML IV SCH (21:12)
[2021-12-27] MEDS: BENZONATATE 100 MG CAPSULE PO PRN (22:18)
[2021-12-27] MEDS: guaiFENesin/CODEINE 10 ML UDC PO PRN (22:19)
[2021-12-28] MEDS: guaiFENesin/CODEINE 10 ML UDC PO PRN ×3 (04:19→19:59)
[2021-12-28] MEDS: 0.9 % SODIUM CHLORIDE 10 ML SYRINGE IV SCH ×4 (04:19→21:03)
[2021-12-28] MEDS: BENZONATATE 100 MG CAPSULE PO PRN ×3 (04:19→19:59)
[2021-12-28 06:49] LABS: Basophils # (Auto) 0.05 K/mcL (0.00-0.30); Basophils % (Auto) 0.4 % (0.0-2.0); Eosinophils # (Auto) 0.06 K/mcL (0.00-0.70); Eosinophils % (Auto) 0.5 % (0.0-7.0); Hematocrit 31.3 % (34.1-44.9); Hemoglobin 10.4 g/dL (11.2-15.7); Lymphocytes # (Auto) 0.62 K/mcL (1.50-4.80); Lymphocytes % (Auto) 5.1 % (15.5-49.0); Mean Cell Volume 106.8 fL (80.0-100.0); Mean Corpuscular HGB Conc 33.2 g/dL (31.0-36.0); Mean Platelet Volume 11.4 fL (7.4-10.4); Monocytes # (Auto) 0.34 K/mcL (0.10-0.90); Monocytes % (Auto) 2.8 % (1.0-12.0); Neutrophils % (Auto) 91.2 % (38.0-78.0); Platelet Count 121 K/mcL (140-440); RBC 2.93 M/mcL (3.59-5.38); Red Cell Distribution Width 13.1 % (11.5-14.5); WBC 12.1 K/mcL (4.5-11.0)
[2021-12-28] MEDS: ACETAMINOPHEN 325 MG TABLET PO PRN ×2 (07:20→14:50)
[2021-12-28 07:23] LABS: Blood Urea Nitrogen 8 mg/dL (8-23); Calcium 8.8 mg/dL (8.6-10.4); Carbon Dioxide 22 mmol/L (22-30); Chloride 107 mmol/L (96-108); Glomerular Filtration Rate 78; Glucose 114 mg/dL (70-105)
[2021-12-28] MEDS: IPRATROPIUM/ALBUTEROL 3 ML AMPUL.NEB NEB SCH ×2 (08:01→21:24)
[2021-12-28] MEDS: ASPIRIN 81 MG TAB.CHEW PO SCH (08:52)
[2021-12-28] MEDS: LOSARTAN 50 MG TABLET PO SCH (08:52)
[2021-12-28] MEDS: FENOFIBRATE 43 MG CAPSULE PO SCH (08:52)
[2021-12-28] MEDS: CLOPIDOGREL 75 MG TABLET PO SCH (08:52)
[2021-12-28] MEDS: FOLIC ACID 1 MG TABLET PO SCH (08:52)
[2021-12-28] MEDS: ENOXAPARIN 30 MG/0.3 ML SYRINGE SQ SCH (08:53)
[2021-12-28] MEDS: cefTRIAXone 2 GM in DEXTROSE 5% IN WATER 50 ML IV SCH (09:05)
[2021-12-28] MEDS: LEVOFLOXACIN 750 MG TABLET PO SCH (09:20)
[2021-12-28] MEDS: LOPERAMIDE 2 MG CAPSULE PO PRN (19:52)
[2021-12-29] MEDS: 0.9 % SODIUM CHLORIDE 10 ML SYRINGE IV SCH ×3 (05:22→20:22)
--- NOTE | 2021-12-29 06:18 | EKG ---
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
[2021-12-29] MEDS: LOPERAMIDE 2 MG CAPSULE PO PRN ×2 (06:54→17:26)
[2021-12-29] MEDS: BENZONATATE 100 MG CAPSULE PO PRN ×2 (06:54→20:22)
[2021-12-29] MEDS: guaiFENesin/CODEINE 10 ML UDC PO PRN ×2 (06:55→20:22)
[2021-12-29 07:42] LABS: Basophils # (Auto) 0.03 K/mcL (0.00-0.30); Basophils % (Auto) 0.3 % (0.0-2.0); Eosinophils # (Auto) 0.08 K/mcL (0.00-0.70); Eosinophils % (Auto) 0.8 % (0.0-7.0); Hematocrit 32.3 % (34.1-44.9); Hemoglobin 10.5 g/dL (11.2-15.7); Lymphocytes # (Auto) 0.61 K/mcL (1.50-4.80); Lymphocytes % (Auto) 6.3 % (15.5-49.0); Mean Cell Volume 107.7 fL (80.0-100.0); Mean Corpuscular HGB Conc 32.5 g/dL (31.0-36.0); Mean Platelet Volume 10.9 fL (7.4-10.4); Monocytes # (Auto) 0.36 K/mcL (0.10-0.90); Monocytes % (Auto) 3.7 % (1.0-12.0); Neutrophils % (Auto) 88.9 % (38.0-78.0); Platelet Count 134 K/mcL (140-440); WBC 9.7 K/mcL (4.5-11.0)
[2021-12-29 08:05] LABS: ALT/SGPT 6 U/L (<40); AST/SGOT 21 U/L (<32); Alkaline Phosphatase 52 U/L (39-117); Bilirubin,Direct < 0.2 mg/dL (0-0.3); Bilirubin,Total 0.4 mg/dL (0.1-1.0); Blood Urea Nitrogen 7 mg/dL (8-23); Calcium 9.2 mg/dL (8.6-10.4); Carbon Dioxide 21 mmol/L (22-30); Chloride 102 mmol/L (96-108); Globulin 2.9 gm/dL (2.2-3.7); Glomerular Filtration Rate 68; Glucose 96 mg/dL (70-105); Lactate Dehydrogenase 370 U/L (135-225); Phosphorous 2.6 mg/dL (2.5-4.5); Triglycerides 69 mg/dL (<150); Uric Acid 3.4 mg/dL (2.5-8.0)
[2021-12-29] MEDS: FOLIC ACID 1 MG TABLET PO SCH (08:26)
[2021-12-29] MEDS: LEVOFLOXACIN 750 MG TABLET PO SCH (08:27)
[2021-12-29] MEDS: ENOXAPARIN 30 MG/0.3 ML SYRINGE SQ SCH (08:28)
[2021-12-29] MEDS: LOSARTAN 50 MG TABLET PO SCH (08:28)
[2021-12-29] MEDS: FENOFIBRATE 43 MG CAPSULE PO SCH (08:28)
[2021-12-29] MEDS: ASPIRIN 81 MG TAB.CHEW PO SCH (08:28)
[2021-12-29] MEDS: CLOPIDOGREL 75 MG TABLET PO SCH (08:28)
[2021-12-29] MEDS: IPRATROPIUM/ALBUTEROL 3 ML AMPUL.NEB NEB SCH ×2 (09:26→20:37)
--- NOTE | 2021-12-29 12:36 | Internal Med Progress Note ---
SUBJECTIVE Subjective Patient information: Note initiated : 12/29/21 at 12:33 pm Service Date, if different from initiated Date: [] Patient: Renate Dykes 61 y/o F admitted on 12/26/21 for Low sats, cough. Chief Complaint: [] Interval history: History of present illness: Ms. Dykes is a 60 year old Presents today with shortness of breath and coughing. Patient states yesterday she started developing a cough and some mild shortness of breath which progressed through the night and today where she was so severe she could hardly walk across the room as she became so short of breath. She had productive cough of clear and sometimes thick sputum. Also had a few loose stools. No chest pain no headache or fever but has chills. She has had the COVID-vaccine and the booster. Rapid Jodee COVID and flu screens were negative. The [place] COVID test is been sent Patient has a history of heavy smoking 3 years ago. An elevated D-dimer and CT was done which showed no PE but did show moderate emphysema changes and bilateral infiltrates. Patient's never been evaluated for COPD she did receive an inhaler 1 time for upper respite tract infection she felt she responded well to it. She is hypoxic down to 83% in the ED. 5/4 Continues with cough and shortness of breath with some mild improvement. Tired. Sore chest wall from coughing. Leukocytosis. Lactic acidosis resolved. Mycoplasma IgM positive sending a confirmatory test. 5/5 Fevers overnight, persistent cough, briefly on room air but then transitioned to 1 L/min nasal canula oxygen. PANTHER NAAT negative. Started oral Levofloxacin, discontinued ceftriaxone and Azithromycin. 5/6 Afebrile overnight, respiratory status improved, on room air today. Leukocytosis has resolved, no pathogens grown on sputum culture.. Held losartan due to hypotension, started IV fluid. Physical Exam Head: Atraumatic, normal inspection. Eyes: normal appearance, no scleral icterus. Neck: full ROM Respiratory: bilateral wheezes, no respiratory distress. Cardiovascular: regular tachycardia, S1, S2. GI/Abdominal: soft, nontender, no guarding. Extremities: full range of motion, nontender. Neurological: CN II-XII intact, intact motor, intact sensation. Psychiatric: normal mood. Skin: warm, normal color Constitutional Vitals: Vital Signs Temp Pulse Resp BP Pulse Ox 98.4 F 86 14 95/55 92 12/29/21 07:04 12/29/21 09:27 12/29/21 09:27 12/29/21 07:04 12/29/21 09:27 Period Temp Pulse Resp BP Sys/Wick Pulse Ox Last 24 Hr 97.3 F-98.8 F 86-117 14-18 95-115/52-62 90-95 Intake and Output 12/28/21 12/29/21 12/29/21 21:59 05:59 13:59 Intake Total 720 150 Balance 720 150 Weight 46.947 kg Intake & Output: Intake & Output 12/28/21 12/29/21 12/29/21 21:59 05:59 13:59 Intake Total 720 150 Balance 720 150 Weight 46.947 kg Intake: Oral 720 150 Other: Meal Dinner Percent of Meal Consumed 50% Urine Appearance Clear Clear Urine Color Straw Urine Odor Normal Normal Stool Size Moderate Stool Color Green Stool Consistency Liquid # Voids 4 3 OBJ DATA Labs CBC & Chem 7: 12/29/21 07:05 12/29/21 07:05 Labs: Abnormal Lab Results 12/29/21 12/29/21 12/29/21 07:05 07:05 07:05 WBC RBC 3.00 L Hgb 10.5 L Hct 32.3 L MCV 107.7 H MCH 35.0 H Plt Count 134 L MPV 10.9 H Neut % (Auto) 88.9 H Lymph % (Auto) 6.3 L Lymph # (Auto) 0.61 L Absolute Neutrophils 8.60 H D-Dimer POC VBG pCO2 at Temp POC VBG pO2 VBG Lactic Acid Carbon Dioxide 21 L BUN 7 L Glucose POC Glucose POC Venous Lactate Calcium POC WB Ioniz Calcium Lactate Dehydrogenase 370 H NT-Pro-B Natriuret Pep Total Protein Albumin 3.0 L Prealbumin Procalcitonin 0.76 H Mycoplasma pneumon IgM POC Troponin I 12/28/21 12/28/21 12/28/21 05:39 05:39 05:39 WBC 12.1 H RBC 2.93 L Hgb 10.4 L Hct 31.3 L MCV 106.8 H MCH 35.5 H Plt Count 121 L MPV 11.4 H Neut % (Auto) 91.2 H Lymph % (Auto) 5.1 L Lymph # (Auto) 0.62 L Absolute Neutrophils 11.03 H D-Dimer POC VBG pCO2 at Temp POC VBG pO2 VBG Lactic Acid Carbon Dioxide BUN Glucose 114 H POC Glucose POC Venous Lactate Calcium POC WB Ioniz Calcium Lactate Dehydrogenase NT-Pro-B Natriuret Pep Total Protein Albumin Prealbumin Procalcitonin 1.19 H Mycoplasma pneumon IgM POC Troponin I 12/27/21 12/27/21 12/27/21 05:53 05:53 05:53 WBC 13.9 H RBC 3.23 L Hgb Hct MCV 106.2 H MCH 35.0 H Plt Count 136 L MPV 11.2 H Neut % (Auto) 87.9 H Lymph % (Auto) 8.3 L Lymph # (Auto) 1.16 L Absolute Neutrophils 12.25 H D-Dimer POC VBG pCO2 at Temp POC VBG pO2 VBG Lactic Acid Carbon Dioxide BUN Glucose POC Glucose POC Venous Lactate Calcium 8.3 L POC WB Ioniz Calcium Lactate Dehydrogenase 321 H NT-Pro-B Natriuret Pep Total Protein 5.7 L Albumin Prealbumin Procalcitonin 3.13 H Mycoplasma pneumon IgM POC Troponin I 12/26/21 12/26/21 12/26/21 22:26 22:25 19:04 WBC RBC Hgb Hct MCV MCH Plt Count MPV Neut % (Auto) Lymph % (Auto) Lymph # (Auto) Absolute Neutrophils D-Dimer POC VBG pCO2 at Temp POC VBG pO2 VBG Lactic Acid 2.9 H Carbon Dioxide BUN Glucose POC Glucose POC Venous Lactate Calcium POC WB Ioniz Calcium Lactate Dehydrogenase NT-Pro-B Natriuret Pep Total Protein Albumin Prealbumin 18.9 L Procalcitonin Mycoplasma pneumon IgM Positive A POC Troponin I 12/26/21 12/26/21 12/26/21 16:21 16:19 16:07 WBC RBC Hgb Hct MCV MCH Plt Count MPV Neut % (Auto) Lymph % (Auto) Lymph # (Auto) Absolute Neutrophils D-Dimer POC VBG pCO2 at Temp 39.5 L POC VBG pO2 23 L VBG Lactic Acid Carbon Dioxide BUN Glucose POC Glucose 118 H POC Venous Lactate 2.1 H Calcium POC WB Ioniz Calcium 1.12 L Lactate Dehydrogenase NT-Pro-B Natriuret Pep Total Protein Albumin Prealbumin Procalcitonin Mycoplasma pneumon IgM POC Troponin I 0 L 12/26/21 12/26/2112/26/22 16:05 16:05 16:05 WBC RBC Hgb Hct MCV MCH Plt Count MPV Neut % (Auto) Lymph % (Auto) Lymph # (Auto) Absolute Neutrophils D-Dimer 2.22 H POC VBG pCO2 at Temp POC VBG pO2 VBG Lactic Acid Carbon Dioxide BUN Glucose POC Glucose POC Venous Lactate Calcium POC WB Ioniz Calcium Lactate Dehydrogenase NT-Pro-B Natriuret Pep 377.5 H Total Protein Albumin Prealbumin Procalcitonin 1.29 H Mycoplasma pneumon IgM POC Troponin I 12/26/21 16:05 WBC 14.4 H RBC Hgb Hct MCV 104.6 H MCH 35.7 H Plt Count MPV 11.2 H Neut % (Auto) 91.9 H Lymph % (Auto) 2.6 L Lymph # (Auto) 0.37 L Absolute Neutrophils 13.19 H D-Dimer POC VBG pCO2 at Temp POC VBG pO2 VBG Lactic Acid Carbon Dioxide BUN Glucose POC Glucose POC Venous Lactate Calcium POC WB Ioniz Calcium Lactate Dehydrogenase NT-Pro-B Natriuret Pep Total Protein Albumin Prealbumin Procalcitonin Mycoplasma pneumon IgM POC Troponin I Meds: Medications Acetaminophen (Acetaminophen 325 Mg Tablet) 650 mg PO Q6HP PRN; Protocol PRN Reason: Per Pain Protocol/Fever > 101 Last Admin: 12/28/21 14:50 Dose: 650 mg Documented by: Albuterol/Ipratropium (Ipratropium/Albuterol 3 Ml Ampul.Neb) 3 ml NEB Q4HP PRN PRN Reason: Shortness Of Breath Albuterol/Ipratropium (Ipratropium/Albuterol 3 Ml Ampul.Neb) 3 ml NEB BID [facility] Last Admin: 12/29/21 09:26 Dose: 3 ml Documented by: Aspirin (Aspirin 81 Mg Tab.Chew) 81 mg PO QDAY [facility] Last Admin: 12/29/21 08:28 Dose: 81 mg Documented by: Benzonatate (Benzonatate 100 Mg Capsule) 200 mg PO TIDP PRN PRN Reason: Cough Last Admin: 12/29/21 06:54 Dose: 200 mg Documented by: Clopidogrel Bisulfate (Clopidogrel 75 Mg Tablet) 75 mg PO QAM [facility] Last Admin: 12/29/21 08:28 Dose: 75 mg Documented by: Enoxaparin Sodium (Enoxaparin 30 Mg/0.3 Ml Syringe) 30 mg SQ DAILY [facility] Last Admin: 12/29/21 08:28 Dose: 30 mg Documented by: Fenofibrate (Fenofibrate 43 Mg Capsule) 129 mg PO QDAY [facility] Last Admin: 12/29/21 08:28 Dose: 129 mg Documented by: Folic Acid (Folic Acid 1 Mg Tablet) 0.5 mg PO QDAY [facility] Last Admin: 12/29/21 08:26 Dose: 0.5 mg Documented by: Guaifenesin/Codeine Phosphate (Guaifenesin/Codeine 10 Ml Udc) 10 ml PO Q4HP PRN PRN Reason: Cough Last Admin: 12/29/21 06:55 Dose: 10 ml Documented by: Potassium Chloride 40 meq/ (Dextrose) 520 mls @ 130 mls/hr IV UD PRN PRN Reason: Potassium < 3 Magnesium Sulfate (Magnesium Sulfate) 2 gm in 50 mls @ 50 mls/hr IV UD PRN PRN Reason: Magnesium </= 1.6 Levofloxacin (Levofloxacin 750 Mg Tablet) 750 mg PO DAILY [facility]; Protocol Last Admin: 12/29/21 08:27 Dose: 750 mg Documented by: Loperamide HCl (Loperamide 2 Mg Capsule) 2 mg PO UD PRN PRN Reason: Diarrhea Last Admin: 12/29/21 06:54 Dose: 2 mg Documented by: Ondansetron HCl (Ondansetron 4 Mg/2 Ml Vial) 4 mg IV Q4HP PRN PRN Reason: Nausea And Vomiting Last Admin: 12/28/21 07:15 Dose: 4 mg Documented by: Polyethylene Glycol (Polyethylene Glycol 3350 17 Gm Packet) 17 gm PO DAILYP PRN PRN Reason: Constipation Potassium Chloride (Potassium Chloride 20 Meq Tablet) 40 meq PO UD PRN PRN Reason: Potssium is 3-3.5 Potassium Chloride (Potassium Chloride 20 Meq Tablet) 40 meq PO UD PRN PRN Reason: Potassium < 3 Senna (Sennosides 1 Tablet) 2 tab PO DAILYP PRN PRN Reason: Constipation Sodium Chloride (0.9 % Sodium Chloride 10 Ml Syringe) 10 ml IV Q8 [facility] Last Admin: 12/29/21 05:22 Dose: Not Given Documented by: A/P Narrative A/P Narrative: A: *Pneumonia, CAP b/l: likely Mycoplasman PNA given serology and interstitial pulm findings -elevated PCT -Myco IgM (+) *Acute hypoxic respiratory failure: *Resolving sepsis w/lactic acidosis: *Thrombocytopenia, mild 2/2 above *Protein calorie malnutrition: Fat and muscle loss *COPD: By imaging and smoking history *HTN: on ARB *CKD III: *PAD: Stent to the right groin by Dr. Fournier few years ago, on ASA/plavix/fibrate *Macrocytosis: b12/folate wnl P: -Levofloxacin PO, treat 5 to 7 days. -Myco confirmatory test pending -IS/Acapella, RT, prn nebs -cont ASA/plavix -IV fluid today. -Holding losartan for hypotension. -pt/ot -Follow-up with pulmonary for PFTs -ppx: Lovenox Time Spent With Patient Time: Total time spent is greater than 50% in coordination of care (as documented) at patient's floor/unit and/or counseling patient: QUALITY Stroke Symptom Onset Unknown: No VTE Deep Vein Thrombosis/Pulmonary Embolism Present on Admission: No
[2021-12-29] MEDS: 0.9 % SODIUM CHLORIDE 1,000 ML IV SCH ×2 (13:03→21:10)
[2021-12-29] MEDS: ACETAMINOPHEN 325 MG TABLET PO PRN (17:17)
[2021-12-30] MEDS: guaiFENesin/CODEINE 10 ML UDC PO PRN ×2 (03:08→08:25)
[2021-12-30] MEDS: 0.9 % SODIUM CHLORIDE 10 ML SYRINGE IV SCH (05:39)
[2021-12-30] MEDS: ASPIRIN 81 MG TAB.CHEW PO SCH (08:25)
[2021-12-30] MEDS: ENOXAPARIN 30 MG/0.3 ML SYRINGE SQ SCH (08:25)
[2021-12-30] MEDS: LEVOFLOXACIN 750 MG TABLET PO SCH (08:25)
[2021-12-30] MEDS: FOLIC ACID 1 MG TABLET PO SCH (08:26)
[2021-12-30] MEDS: FENOFIBRATE 43 MG CAPSULE PO SCH (08:26)
[2021-12-30] MEDS: CLOPIDOGREL 75 MG TABLET PO SCH (08:26)
--- NOTE | 2021-12-30 09:02 | Discharge Summary ---
Discharge Provider Provider Patient information: Note initiated : 12/30/21 at 8:59 am Service Date, if different from initiated Date: [] Patient: Renate Dykes 61 y/o F admitted on 12/26/21 for Low sats, cough. Chief Complaint: [] Date of admission: 12/26/21 21:48 Discharge date: 12/30/21 Primary care physician: Nely Medel Consults: 12/26/21 18:39 Consult to Physician [CONS] Stat Comment: Consulting Provider: Arnie Louis Reason For Exam: Physician to Consult Discharge Meds Discharge Medications Home Medications alendronate 70 mg tablet 1 tab PO WEEKLY 12/26/21 [History Confirmed 12/26/21 Last Taken Unknown] aspirin 81 mg tablet 81 mg PO QDAY 12/26/21 [History Confirmed 12/26/21 Last Taken Unknown] clopidogrel 75 mg tablet 1 tab PO QAM 12/26/21 [History Confirmed 12/26/21 Last Taken Unknown] fenofibrate nanocrystallized 145 mg tablet 1 tab PO QDAY 12/26/21 [History Confirmed 12/26/21 Last Taken Unknown] folic acid 400 mcg tablet 0.4 mg PO QDAY 12/26/21 [History Confirmed 12/26/21 Last Taken Unknown] benzonatate 100 mg capsule 200 mg PO TIDP PRN #30 cap 12/30/21 [Rx Last Taken Unknown] codeine 10 mg-guaifenesin 100 mg/5 mL oral liquid (Guaiatussin AC) 10 ml PO Q4HP PRN #237 ml 12/30/21 [Rx Last Taken Unknown] levofloxacin 750 mg tablet 750 mg PO QDAY 3 Days #3 tab 12/30/21 [Rx Last Taken Unknown] COURSE Hospital Course Hospital course: Ms. Dykes is a 60 year old Presents today with shortness of breath and coughing. Patient states yesterday she started developing a cough and some mild shortness of breath which progressed through the night and today where she was so severe she could hardly walk across the room as she became so short of breath. She had productive cough of clear and sometimes thick sputum. Also had a few loose stools. No chest pain no headache or fever but has chills. She has had the COVID-vaccine and the booster. Rapid Jodee COVID and flu screens were negative. The [place] COVID test is been sent Patient has a history of heavy smoking 3 years ago. An elevated D-dimer and CT was done which showed no PE but did show moderate emphysema changes and bilateral infiltrates. Patient's never been evaluated for COPD she did receive an inhaler 1 time for upper respite tract infection she felt she responded well to it. She is hypoxic down to 83% in the ED. 5/ Continues with cough and shortness of breath with some mild improvement. Tired. Sore chest wall from coughing. Leukocytosis. Lactic acidosis resolved. Mycoplasma IgM positive sending a confirmatory test. 12/28 Fevers overnight, persistent cough, briefly on room air but then transitioned to 1 L/min nasal canula oxygen. PANTHER NAAT negative. Started oral Levofloxacin, discontinued ceftriaxone and Azithromycin. 12/29 Afebrile overnight, respiratory status improved, on room air today. Leukocytosis has resolved, no pathogens grown on sputum culture.. Held losartan due to hypotension, started IV fluid. 12/30 The patient says she feels much better today, discharged home. Will complete pneumonia treatment with levofloxacin. Held losartan due to low normal blood pressures while hospitalized. Patient was instructed to keep a blood pressure diary after discharge and present that information to her primary care provider. Follow-up with PCP after discharge. Physical Exam Head: Atraumatic, normal inspection. Eyes: normal appearance, no scleral icterus. Neck: full ROM Respiratory: bilateral wheezes, no respiratory distress. Cardiovascular: regular tachycardia, S1, S2. GI/Abdominal: soft, nontender, no guarding. Extremities: full range of motion, nontender. Neurological: CN II-XII intact, intact motor, intact sensation. Psychiatric: normal mood. Skin: warm, normal color Discharge diagnosis: Community-acquired pneumonia Time Spent with Patient Time attestation: Total time spent providing and/or coordinating discharge services: 20 minutes. EXAM Constitutional Vitals: Temp Pulse Resp BP Pulse Ox 97 F 94 H 16 97/53 92 12/30/21 06:39 12/30/21 06:39 12/30/21 06:39 12/30/21 06:39 12/30/21 06:39 Discharge Data Data Completed and Pending Labs on day of discharge: Preliminary micro results at discharge 12/26/21 16:15 Blood Culture - Preliminary Blood 12/26/21 16:05 Blood Culture - Preliminary Blood Discharge Plan Patient/Caregiver Discharge Instructions Activity: increase activity as tolerated Diet: Regular Diet Prescriptions: New benzonatate 100 mg Capsule 200 mg PO TIDP PRN (Reason: Cough) Qty: 30 0RF codeine-guaifenesin [Guaiatussin AC] 10-100 mg/5 mL Liquid 10 ml PO Q4HP PRN (Reason: Cough) Qty: 237 2RF levofloxacin 750 mg tablet 750 mg PO QDAY 3 Days Qty: 3 0RF Continued alendronate 70 mg tablet 1 tab PO WEEKLY 0RF clopidogrel 75 mg tablet 1 tab PO QAM 0RF folic acid 400 mcg Tablet 0.4 mg PO QDAY 0RF aspirin 81 mg Tablet 81 mg PO QDAY 0RF fenofibrate nanocrystallized 145 mg tablet 1 tab PO QDAY 0RF Discontinued losartan 50 mg Tablet 50 mg PO DAILY 0RF Follow Up Plan Follow up with: Nely Medel [Primary Care Provider] - Patient Disposition: Home, Self-Care Overall status at discharge: patient is progressing back to baseline Discharge Orders: Discharge Order (Routine); Ordered 12/30/21 Ordered By: Fritz Beatty QUALITY VTE Deep Vein Thrombosis/Pulmonary Embolism Present on Admission: No
[2021-12-30] MEDS: IPRATROPIUM/ALBUTEROL 3 ML AMPUL.NEB NEB SCH (09:20)
== END 2021-12-30 12:05 | disposition home or self-care (01) | DRG 193 ==
LOC: ED 15:42 → MEDSUR 21:48
PROVIDERS: ADMIT Internal Medicine; ATTEND Internal Medicine